=== PATIENT | male | born 2005 | race Caucasian/White ===

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

== ENCOUNTER 2024-01-06 06:00 | Outpatient (RCR) | payer MEDICAID, SELFPAY | END 2024-02-05 23:59 | disposition home or self-care (01) | LOC: SST 06:00 | PROVIDERS: PCP Nurse Practitioner Family; Visit Provider Nurse Practitioner Family | DX: F84.0 Autistic disorder (principal) | CPT/HCPCS: 92507 ==

== ENCOUNTER 2024-02-06 06:00 | Outpatient (RCR) | payer MEDICAID, SELFPAY | END 2024-03-06 23:59 | disposition home or self-care (01) | LOC: SST 06:00 | PROVIDERS: PCP Nurse Practitioner Family; Visit Provider Nurse Practitioner Family | DX: F84.0 Autistic disorder (principal) | CPT/HCPCS: 92507 ==

== ENCOUNTER 2024-03-07 06:00 | Outpatient (RCR) | payer MEDICAID, SELFPAY | END 2024-04-06 23:59 | disposition home or self-care (01) | LOC: SST 06:00 | PROVIDERS: PCP Nurse Practitioner Family; Visit Provider Nurse Practitioner Family | DX: F84.0 Autistic disorder (principal) | CPT/HCPCS: 92507 ==

== ENCOUNTER 2024-04-07 06:00 | Outpatient (RCR) | payer MEDICARE, MEDICAID, SELFPAY | END 2024-05-06 23:59 | disposition home or self-care (01) | LOC: SST 06:00 | PROVIDERS: PCP Nurse Practitioner Family; Visit Provider Nurse Practitioner Family | DX: F84.0 Autistic disorder (principal) | CPT/HCPCS: 92507; 92609 ==

== ENCOUNTER → 2024-05-29 12:30 | Outpatient (BNVA) | payer MEDICAID, SELFPAY | PROVIDERS: PCP Nurse Practitioner Family; Visit Provider Specialist | DX: G40.309 Generalized idiopathic epilepsy and epileptic syndromes, not intractable, without status epilepticus (principal); F07.0 Personality change due to known physiological condition; F84.0 Autistic disorder | CPT/HCPCS: 99213 ==

== ENCOUNTER → 2024-10-09 13:50 | Outpatient (BNVA) | payer MEDICAID, SELFPAY | PROVIDERS: PCP Nurse Practitioner Family; Referring Provider Nurse Practitioner Family; Visit Provider Nurse Practitioner Family | DX: L21.8 Other seborrheic dermatitis (principal); L70.0 Acne vulgaris; L85.3 Xerosis cutis; L85.8 Other specified epidermal thickening | CPT/HCPCS: 99204 ==

== ENCOUNTER 2025-04-13 18:53 | Emergency (ER) | payer MEDICARE, MEDICAID, SELFPAY ==
[2025-04-13 19:03] VITALS: BP 129/102; PULSE 106; RESP 18; TEMP 36.8; O2SAT 95; BMI 46.6
--- NOTE | 2025-04-13 19:03 | W.ED.SEIZURE ---
HPI - Seizure General: Chief Complaint: Seizure Stated Complaint: SEIZURES Time Seen by Provider: 04/13/25 18:58 History of Present Illness: HPI Narrative: 19-year-old male who is nonverbal autistic with a seizure disorder had a brief tonic-clonic seizure lasting 30 seconds or less. Patient was already starting to come around upon EMS arrival. Patient's last seizure is been approximately 1 year. Seizure History: Yes Related Data Home Medications ?Medication ?Instructions ?Recorded ?Confirmed aripiprazole 10 mg tablet 5 mg PO BID@08,02/12/21 05/29/24 lorazepam 1 mg tablet 1 mg PO DAILY PRN for pain and 05/25/21 05/29/24 aggression lorazepam 1 mg tablet 1 mg PO DAILY@05/25/21 05/29/24 lorazepam 2 mg tablet 2 mg PO BID@,05/25/21 05/29/24 omeprazole 20 mg capsule,delayed 20 mg PO DAILY@05/25/21 05/29/24 release diphenhydramine HCl 25 mg capsule 25 mg PO DAILY@10/08/21 05/29/24 lactulose 10 gram/15 mL oral 30 ml PO DAILY PRN Constipation 10/08/21 05/29/24 solution cetirizine 10 mg tablet 10 mg PO DAILY@02/07/23 05/29/24 acetaminophen 500 mg tablet (Pain 1,000 mg PO Q6H PRN Pain 05/02/23 05/29/24 Reliever (acetaminophen)) calcium carbonate 500 mg PO BID PRN Heartburn 10/23/23 05/29/24 ciprofloxacin 0.3 %-dexamethasone 4 drp otic (ear) PRN 10/23/23 05/29/24 0.1 % ear drops,suspension fluticasone propionate 50 1 spray intranasal BID PRN Allergy 10/23/23 05/29/24 mcg/actuation nasal Symptoms spray,suspension guar gum See Rx Instructions .Route .COMPLEX 10/23/23 05/29/24 ibuprofen 200 mg tablet 600 mg PO Q6H PRN Pain 10/23/23 05/29/24 lorazepam 0.5 mg tablet See Rx Instructions .Route .COMPLEX 10/23/23 05/29/24 melatonin 3 mg tablet 3 mg PO BEDTIME PRN Sleep 10/23/23 05/29/24 naloxone 4 mg/actuation nasal See Rx Instructions .Route .COMPLEX 10/23/23 05/29/24 spray (Narcan) rosuvastatin 20 mg tablet 20 mg PO DAILY@20 10/23/23 05/29/24 Previous Rx's ?Medication ?Instructions ?Recorded vitamins A and D-white See Rx Instructions .Route 02/28/25 petrolatum-lanolin topical ointment .COMPLEX #425 grams diazepam 10 mg/spray (0.1 mL) 10 mg (0.1 mL) intranasal ONCE #2 03/04/25 nasal spray (Valtoco) sprays lacosamide 150 mg tablet 150 mg PO BID #180 tabs 03/04/25 Allergies Allergy/AdvReac Type Severity Reaction Status Date / Time cefdinir Allergy Severe ALGY-Difficulty Verified 05/29/24 12:54 Breathing Review of Systems General: Reports: ROS unobtainable due to medical condition (Patient is nonverbal autistic) PFSH ED PFSH: Medical History Seizure Autism Surgical History No significant past surgical history Social History Smoking and tobacco/nicotine status: never used tobacco/nicotine Alcohol intake: never Substance/Drug Use: never Physical Exam Const: COMMON NORMALS: no acute distress OTHER: Mildly postictal but will follow commands and look at you when you are speaking to him Resp: COMMON NORMALS: normal respiratory effort and clear to auscultation bilaterally AUSCULTATION: clear to auscultation bilaterally Cardio: COMMON NORMALS: regular rate and regular rhythm RATE: regular rate RHYTHM: regular rhythm Skin: COMMON NORMALS: no rashes or lesions noted and no wounds GENERAL SKIN EXAM: no rashes or lesions noted Course Vital Signs: Vital signs: Vital Signs Temperature 98.2 F 04/13/25 19:03 Pulse Rate 114 H 04/13/25 20:50 Respiratory Rate 16 04/13/25 20:50 Blood Pressure 138/94 04/13/25 20:50 Pulse Oximetry 97 04/13/25 20:50 Oxygen Delivery Me thod Room Air 04/13/25 19:03 MDM - Seizure MDM Narrative Medical decision making narrative: Patient's diagnostics were reviewed and showed no significant acute findings. Patient's staff clarified that the morning nurse has not been giving him his a.m. seizure medications because he has not been getting up early and is kind of groggy and tired. Lab Data 04/13/25 19:14 04/13/25 19:14 Labs: Laboratory Results WBC 9.69 10^3/uL (4.5-13.0) 04/13/25 19:14 RBC 5.97 10^6/uL (3.85-5.65) H 04/13/25 19:14 Hgb 17.00 g/dL (13.2-15.6) H 04/13/25 19:14 Hct 50.9 % (37-53) 04/13/25 19:14 MCV 85.3 fl (82-101) 04/13/25 19:14 MCH 28.5 pg (27-33) 04/13/25 19:14 MCHC 33.4 g/dL (30-55) 04/13/25 19:14 RDW 14.2 % (12.1-15.1) 04/13/25 19:14 Plt Count 313 10^3/cmm (157-399) 04/13/25 19:14 MPV 9.3 fL (7.4-10.4) 04/13/25 19:14 Neut % (Auto) 54.5 % 04/13/25 19:14 Lymph % (Auto) 35.4 % 04/13/25 19:14 [place] % (Auto) 7.1 % 04/13/25 19:14 Eos % (Auto) 1.2 % 04/13/25 19:14 Baso % (Auto) 0.9 % 04/13/25 19:14 Neut # (Auto) 5.27 10^3/uL (1.8-8.0) 04/13/25 19:14 Lymph # (Auto) 3.4 10^3/uL (1.5-6.5) 04/13/25 19:14 [place] # (Auto) 0.7 10^3/uL (0.2-0.9) 04/13/25 19:14 Eos # (Auto) 0.1 10^3/uL (0.0-0.8) 04/13/25 19:14 Baso # (Auto) 0.1 10^3/uL (0.0-0.1) 04/13/25 19:14 Nucleated RBC % (auto) 0 % 04/13/25 19:14 Nucleated RBCs # 0.0 /100WBC 04/13/25 19:14 Sodium 138 mmol/L (136-145) 04/13/25 19:14 Potassium 3.7 mmol/L (3.5-5.1) 04/13/25 19:14 Chloride 102 mmol/L (98-107) 04/13/25 19:14 Carbon Dioxide 21 mmol/L (22-29) L 04/13/25 19:14 Anion Gap 18.7 (5-19) 04/13/25 19:14 BUN 8 mg/dL (6-20) 04/13/25 19:14 Creatinine 0.8 mg/dL (0.7-1.2) 04/13/25 19:14 GFR Calculation 123.2 mL/min (90-130) 04/13/25 19:14 Glucose 86 mg/dL (65-115) 04/13/25 19:14 Calculated Osmolality 284 mOsm/kg (285-295) L 04/13/25 19:14 Calcium 9.7 mg/dL (8.5-10.5) 04/13/25 19:14 Total Bilirubin 0.4 mg/dL (0.15-1.2) 04/13/25 19:14 AST 37 U/L (0-40) 04/13/25 19:14 ALT 83 U/L (0-41) H 04/13/25 19:14 Alkaline Phosphatase 104 U/L (40-130) 04/13/25 19:14 Total Protein 7.4 g/dL (6.6-8.7) 04/13/25 19:14 Albumin 4.6 g/dL (3.5-5.2) 04/13/25 19:14 Globulin 2.8 g/dL (1.3-4.6) 04/13/25 19:14 No radiology studies performed this visit Discharge Plan Discharge Patient Disposition: Home Clinical Impression: Generalized epilepsy, Autism Condition: Stable Prescriptions: No Action lorazepam 1 mg tablet 1 mg PO DAILY PRN (Reason: for pain and aggression) Patient Comments: for agitation lorazepam 2 mg tablet 2 mg PO BID@14,20 omeprazole 20 mg capsule,delayed release(DR/EC) 20 mg PO DAILY@08 cetirizine 10 mg tablet 10 mg PO DAILY@08 vits A and D-white pet-lanolin Ointment See Rx Instructions .ROUTE .COMPLEX Qty: 425 2RF Dose Instruction: APPLY TOPICALLY TO AFFECTED AREA EVERY DAY AT BEDTIME Rx Instructions: APPLY TOPICALLY TO AFFECTED AREA EVERY DAY AT BEDTIME lacosamide 150 mg tablet 150 mg PO BID Qty: 180 1RF Valtoco 10 mg/spray (0.1 mL) spray,non-aerosol 10 mg intranasal ONCE Qty: 2 3RF Rx Instructions: 1 spray in each nostril at onset of seizure. aripiprazole 10 mg Tablet 5 mg PO BID@08,20 lorazepam 1 mg tablet 1 mg PO DAILY@08 diphenhydramine HCl 25 mg Capsule 25 mg PO DAILY@20 lactulose 10 gram/15 mL Solution 30 ml PO DAILY PRN (Reason: Constipation) acetaminophen [Pain Reliever (acetaminophen)] 500 mg tablet 1,000 mg PO Q6H PRN (Reason: Pain) Benefiber Sugar Free(guar gum) Powder See Rx Instructions .ROUTE .COMPLEX Rx Instructions: one scoopfull daily @08:00 lorazepam 0.5 mg tablet See Rx Instructions .ROUTE .COMPLEX Rx Instructions: take 2-4 tablets two TO three times a day as needed rosuvastatin 20 mg tablet 20 mg PO DAILY@20 melatonin 3 mg Tablet 3 mg PO BEDTIME PRN (Reason: Sleep) ibuprofen 200 mg Tablet 600 mg PO Q6H PRN (Reason: Pain) Tums 500 500 mg calcium (1,250 mg) Tablet,Chewable 500 mg PO BID PRN (Reason: Heartburn) fluticasone propionate 50 mcg/actuation spray,suspension 1 spray INTRANASAL BID PRN (Reason: Allergy Symptoms) Ciprodex 0.3-0.1 % drops,suspension 4 drp otic (ear) PRN Narcan 4 mg/actuation [place],Non-Aerosol See Rx Instructions .ROUTE .COMPLEX Rx Instructions: intranasally as directed as needed Discharge Orders: Discharge ED (Routine); Ordered 04/13/25 Ordered By: Kendall Chavez Referrals: Meg Alva FNP [Primary Care Provider, Unknown] Discharge Diet: Usual diet Discharge Activity: Increase activity as tolerated Patient Instructions: Epilepsy (ED), Opioid Safety, Pain Management Activity Restrictions/Additional Instructions: Be sure patient is receiving both his a.m. and p.m. doses of his seizure medications. Please follow-up with his neurologist as needed. Print Language: Taiwanese Coding Level of Care Code ED Cartographic Designer for [facility]hony Copeland
[2025-04-13 19:20] LABS: Basophils # 0.1 10^3/uL (0.0-0.1); Basophils % 0.9 %; Eosinophils # 0.1 10^3/uL (0.0-0.8); Eosinophils % 1.2 %; Hematocrit 50.9 % (37-53); Lymphocytes # 3.4 10^3/uL (1.5-6.5); Lymphocytes % 35.4 %; Mean Corpuscular HGB Conc 33.4 g/dL (30-55); Mean Corpuscular Hemoglobin 28.5 pg (27-33); Mean Corpuscular Volume 85.3 fl (82-101); Mean Platelet Volume 9.3 fL (7.4-10.4); Monocytes # 0.7 10^3/uL (0.2-0.9); Monocytes % 7.1 %; Neutrophils # 5.27 10^3/uL (1.8-8.0); Neutrophils % 54.5 %; Nucleated Red Blood Cells % 0 %; Platelet Count 313 10^3/cmm (157-399); Red Blood Count 5.97 10^6/uL (3.85-5.65); Red Cell Distribution Width 14.2 % (12.1-15.1); White Blood Count 9.69 10^3/uL (4.5-13.0)
[2025-04-13 19:38] LABS: Alanine Aminotransferase 83 U/L (0-41); Albumin Level 4.6 g/dL (3.5-5.2); Alkaline Phosphatase 104 U/L (40-130); Anion Gap 18.7 (5-19); Aspartate Amino Transferase 37 U/L (0-40); Blood Urea Nitrogen 8 mg/dL (6-20); Calcium 9.7 mg/dL (8.5-10.5); Carbon Dioxide 21 mmol/L (22-29); Chloride 102 mmol/L (98-107); Globulin 2.8 g/dL (1.3-4.6); Glomerular Filtration Rate 123.2 mL/min (90-130); Glucose 86 mg/dL (65-115); Osmolality Calculated 284 mOsm/kg (285-295); Potassium 3.7 mmol/L (3.5-5.1); Sodium 138 mmol/L (136-145); Total Bilirubin 0.4 mg/dL (0.15-1.2); Total Protein 7.4 g/dL (6.6-8.7)
[2025-04-13 20:50] VITALS: BP 138/94; PULSE 114; RESP 16; O2SAT 97
== END 2025-04-13 20:53 | disposition home or self-care (01) ==
PROVIDERS: Emergency Provider Student in an Organized Health Care Education/Training Program; PCP Nurse Practitioner Family
DX: G40.909 Epilepsy, unspecified, not intractable, without status epilepticus (principal); F84.0 Autistic disorder
CPT/HCPCS: 36415; 80053; 85025; 99283

== ENCOUNTER → 2025-04-24 11:33 | Outpatient (BNVA) | payer MEDICARE, MEDICAID, SELFPAY | PROVIDERS: PCP Nurse Practitioner Family; Visit Provider Specialist | DX: G40.309 Generalized idiopathic epilepsy and epileptic syndromes, not intractable, without status epilepticus (principal); F07.0 Personality change due to known physiological condition; F84.0 Autistic disorder | CPT/HCPCS: 99214 ==

== ENCOUNTER 2025-06-12 10:45 | Outpatient (CLI) | payer MEDICARE, MEDICAID, SELFPAY ==
--- NOTE | 2025-06-12 10:53 | XR_ITS ---
WS: [id number] XR KUB [id number] REASON FOR EXAM: GENERALIZED ABDOMINAL PAIN FINDINGS: No free air or retroperitoneal air. Unremarkable bowel gas pattern. No organomegaly or mass. No urinary tract calculi. Lumbar spine and bony pelvis are unremarkable. XR/XR KUB [id number] IMPRESSION: No significant abnormality.
== END 2025-06-12 10:46 | disposition home or self-care (01) ==
LOC: RAD 10:50
PROVIDERS: PCP Nurse Practitioner Family; Visit Provider Electrodiagnostic Medicine
DX: R10.84 Generalized abdominal pain (principal)
CPT/HCPCS: 74018

== ENCOUNTER → 2025-08-28 12:32 | Outpatient (BNVA) | payer MEDICARE, MEDICAID, SELFPAY | PROVIDERS: PCP Nurse Practitioner Family; Visit Provider Specialist | DX: G40.309 Generalized idiopathic epilepsy and epileptic syndromes, not intractable, without status epilepticus (principal); F07.0 Personality change due to known physiological condition; F84.0 Autistic disorder; F60.3 Borderline personality disorder | CPT/HCPCS: 99214 ==